=== PATIENT | male | born 1960 | race Caucasian/White ===

== ENCOUNTER → 2017-01-21 | Outpatient (CLI) | payer OTHER ==
[~2017-01-21] MED LIST: MTR600X PO; OXYC1TAB3 PO
--- NOTE | 2017-01-22 08:30 | PAP/PSG TECHNICIAN REPORT ---
[facility] Infertility Nurse Polysomnogram Report Study name: None Report date: 01/22/2017 Study date: 01/21/2017 Referring Physician: DR. ARI UP Name: SHERIDAN ARAUJO Interpreting Physician: Mirta Amato M.D. Date of : 1960 Infertility Nurse: Diane Newberry, PSGT. Sex: Male Age: 56 StudyType: PSG Weight: 231 lbs Height: 56 years, Height 5' 6" Neck Circum:17.5 inches BMI: 37.28 Medications: Melatonin 5 mg, Lisinopril 10 mg, Benadryl 25 mg, IBP 200 mg, Multivit. Patient History 56 yr. old male in room 5, presents to the sleep lab for insomnia. Pt. states that he sleeps on the floor at night due to previous back surgeries. He states that he wakes often for long periods, he is restless and isn't able to shut down his mind. Ess= 14, Neck =17.5 inches. Parameters Monitored NPSG: E1-M2, E2-M1, Fp1-M2, Fp2-M1, F3-M2, F4-M2, F4-M1, C3-M2, C4-M2, C4-M1, O1-M2, O2-M2, O2-M1, T3-M2, T4-M1, P3-M2, P4-M1, CHIN1, CHIN2, HR, EKG, Legs, PFLOW, SNOR, FLOW, CFLOW, Tidal Volume, THOR, ABDO, SpO2, PLTH, CPRESS, ETCO2 Wave, ETCO2, pH Sleep Architecture Sleep Stages Time at Lights Off 10:08:59 PM STAGES Time (min.) TST (%) Time at Lights On 5:40:59 AM Wake 44.0 -- Total Recording Time (TRT) 453.50 min. N1 41.0 10 Total Sleep Period (TSP) 446.0 min. N2 317.0 78 Total Sleep Time (TST) 408.0min. N3 0.0 0 Awake Time 45.5 min. REM 50.0 12 Wake after Sleep Onset 38.0 min. Sleep Efficiency (SE) 90 % Sleep Onset Latency (TERRY) 6.0 min. Number of Stage 1 Shifts None Awakenings 12 Stage Changes 49 Number of REM periods 4 REM 50.0 12 REM Latency 194.0 min. NREM 358.0 88 Body Position Analysis Supine Right Left Side Prone Vertical Total Sleep Time (min.) 133.5 166.6 126.9 293.49 0.0 1.2 Total Sleep Time (%) 28% 41% 31% 72 0% N/A% Total Sleep Time REM (min.) 0.0 32.0 18.0 None 0.0 0.0 Total Sleep Time NREM (min.) 114.5 134.6 108.9 None 0.0 0.0 Intermittent Wake (min.) 19.0 14.4 9.3 None 0.0 1.2 Total Sleep Period (%) 29% None None None None None Arousals Myoclonus (PLM) * Events Count Index Events Count Index Spontaneous 56 8 Events Awake (PLMW) 0 0.0 Respiratory 3 0.4 Events Asleep w/ Arousal (PLMA) 2 0.3 PLM 2 0 Events Asleep w/o Arousal (PLMS) 30 4.4 Snoring 14 2 Total Asleep 32 4.7 Total 74 11 Total 32 4 Respiratory Analysis * CA OA MA CH H RERA Total Count 0 0 0 0 33 5 33 Index 0.0 0.0 0.0 0 4.9 1 5.6 Mean Duration 0.0 0.0 0.0 0.00 22.3 16.6 21.5 Longest Duration 0.0 0.0 0.0 0.00 0.0 21.6 54.5 Respiratory Event Summary Total Supine ~Supine Right Left Prone REM NREM Apneas Count 0 0 0 0 0 N/A 0 0 Index 0.0 0 0 0.0 0.0 N/A 0 0 Hypopneas (4% Desat) Count 33 31 2 0 2 N/A 0 33 Index 4.9 16.2 0 0.0 0.9 N/A 0.0 5.5 Apneas & All Hypopneas Count 33 31 2 0 2 N/A 0 33 Index 4.9 16 0 0 1 N/A 0.0 5.5 Respiratory Events (Strip Cutter+All Hyp+RERA) Count 33 31 7 3 4 N/A 0 33 Index 5.6 16 1 1.1 1.9 N/A 1.2 6.2 Respiratory Related Arousal Count 3 31 0 0 0 N/A 0 3 Index 0.4 2 0 0 0 N/A 0 1 Snoring Analysis Supine Right Left Prone REM NREM Total Snore duration 44.6 min Snores count 639 212 605 N/A 78 1,378 1,456 Snore mean duration 1.8 Sec Snores index 335 76 286 N/A 93.6 230.9 214.1 TST with snoring (%) 10.9% Desaturation Event Summary: Minimum %SpO2 Event Count Mean/Min/Max Duration(sec.) Desaturation Index % Time In Bed > 90 28 30.5 / 12.0 / 58.8 11.6 32.2 86 - 90 14 26.3 / 10.8 / 54.5 2.8 67.6 81 - 85 0 N/A 0.0 0.1 76 - 80 0 N/A 0.0 0.0 71 - 75 0 N/A 0.0 0.0 66 - 70 0 N/A 0.0 0.0 61 - 65 0 N/A 0.0 0.0 56 - 60 0 N/A 0.0 0.0 51 - 55 0 N/A 0.0 0.0 < 50 0 N/A 0.0 0.0 Total REM NREM Awake <50% 0.0 min. 0.0 min. 0.0 min. 0.0 min. 51 - 60% 0.0 min. 0.0 min. 0.0 min. 0.0 min. 61 - 70% 0.0 min. 0.0 min. 0.0 min. 0.0 min. 71 - 80% 0.0 min. 0.0 min. 0.0 min. 0.0 min. 81 - 90% 305.0 min. 24.3 min. 257.7 min. 22.9 min. 91 - 100% 145.1 min. 25.6 min. 99.3 min. 20.1 min. Average 90 91 90 91 Minimum SpO2 84 88 84 87 Desaturation Event Index 4.1 0.0 5.2 0.0 # Desat. Events below 89% 22 N/A 22 N/A Time(%) with Saturation below 89% 13.8 0.0 12.4 1.4 Time(min.) with Saturation below 89% 62.0 0.1 55.8 6.1 Time (mins) REM (mins) NREM (mins) % of TST SpO2 Below 90% 31 N/A N31 39.5 SpO2 Below 88% 10 0 0 2 Heart Rate Analysis Min (bpm) Max (bpm) Average (bpm) Awake 54 127 63 NREM 49 89 60 REM 48 78 56 Overall 48 89 59 Supplemental O2 Values Minimum O2 level: None Value Start Time End Time Infertility Nurse Comments PSG Study Mr. Araujo slept in the right, left, and supine positions. No cardiac arrhythmia or PLM's noted. No bruxism noted. Snoring was noted and scored as a 4 on a scale of 1 through 5. (0=no snoring, 5=snoring loud enough to be heard through a closed door or down the song way) Mr. Araujo awoke to use the restroom zero times during the night. Mr. Araujo stated, I did not sleep as well as I do when I am in my own bed. The final report will be interpreted and signed by a sleep physician. The completed physician report will then be placed in the patient medical record. Pt. seemed to sleep well. he was restless turning often, most likely from back discomfort. Heavy snoring was heard at times. Therapy (cm H2O) 0 TIB (min.) 452.0 TST (min.) 408.0 Sleep Onset (min.) 6.0 REM Onset From Sleep (min.) 194.0 Sleep Efficiency % 90 Wakefulness (%) 10 Wakefulness (min.) 45.5 NREM 1 (%) 10 NREM 1 (min.) 41.0 NREM 2 (%) 78 NREM 2 (min.) 317.0 NREM 3 (%) 0 NREM 3 (min.) 0.0 REM (%) 12 REM (min.) 50.0 # Arousals 74 Arousal Index 11 # Snore 1,456 Snore Index 214.1 AHI 4.9 AHI Supine 16 AHI Non-Supine 0 NREM AHI 5.5 REM AHI 0.0 RDI 5.6 # Obstructive Apnea 0 # Central Apnea 0 # Mixed Apnea 0 # Hypopneas 33 RERAs 5 Total Respiratory Events 38 Time Below SpO2 89% (min.) 55.9 Mean NREM SpO2 (%) 90 Mean REM SpO2 (%) 91 Mean Sleep SpO2 (%) 90 Min NREM SpO2 (%) 84 Min REM SpO2 (%) 88 Position Supine (min.) 133.5 Position Non-supine (min.) 293.5 LM Index Sleep 4.7 LM Index NREM 3.9 LM Index REM 10.8 Mean Heart Rate (bpm) 59 Min Heart Rate (bpm) 48
--- NOTE | 2017-02-05 08:14 | POLYSOMNOGRAPH REPORT ---
REFERRING PERSON: Dr. Kaykay Amato. COURT ATTENDANT: Ana Newberry. Mr. Araujo is a 56-year-old male who presents to the sleep lab with insomnia. He sleeps on his floor at night due to previous back surgeries. He wakes for long periods of time during the night and is often restless in his sleep. He admits to ruminating thoughts that make it difficult for his mind shut down. His [place] sleepiness scale score on the evening of this study is 14. BMI 37.28. Following the technical and digital specifications of the [employer] (AASM) a standard diagnostic polysomnogram was performed monitoring EEG, EOG, EMG (chin and leg deviations), oxygen saturation, body position, digital video, respiratory effort and airflow. The sleep Stage and event scoring was based on the AASM Manual for the Scoring of Sleep and Associated Events 2007 edition. Apneas are defined as a drop in the peak thermal sensor excursion by >90% of baseline for at least 10 seconds. Hypopneas were scored using the 4% oxygen desaturation rule (4A-[employer]) and a decrease in the nasal pressure excursions by >30% of baseline for at least 10 seconds. Respiratory effort-related arousal (RERA's) is defined as a sequence of breaths lasting at least 10 seconds characterized by increasing respiratory effort or flattening of the nasal pressure waveform leading to an arousal from sleep when the sequence of breaths does not meet criteria for an apnea or hypopnea. Apnea Hypopnea index (AHI) is defined as the number of apneas and hypopneas occurring in an hour of sleep. Respiratory disturbance index (RDI) is defined as the number of apneas, hypopneas, and RERA's occurring in an hour of sleep. Mr. Araujo's total sleep period time was 446 minutes. Total sleep time was 408 minutes. Sleep efficiency was 90%. Latency to sleep onset was 6 minutes with wake after sleep onset of 36 minutes. Total non-REM sleep time was 358 minutes. He spent 10% of that time in N1 sleep, 78% in N2 sleep, and no time in N3 sleep. REM latency was 194 minutes. Total REM sleep time was 50 minutes or 12% of total sleep time. There were 74 cortical arousals from sleep. 56 of these arousals were spontaneous, 3 were due to respiratory events, 2 due to periodic limb movements of sleep and 14 were due to snoring. There were 32 periodic limb movements of sleep noted on this test. Limb movement index was 4.7. Limb movement with arousal index was 0.3. There were no central obstructive or mixed apneas noted. There were 33 hypopnea and 5 RERA. Apnea-hypopnea index was borderline abnormal at 4.9. RDI was 5.6. This is consistent with upper airway resistance syndrome. There were 1456 snoring events recorded. Total sleep time with snoring was 10.9%. Mean saturation during sleep was borderline low at 90%. There were desaturations to 84% with respiratory events. Saturations were less than 89 for 62 minutes of recorded time. This is significant nocturnal hypoxemia. There was no cardiac ectopy recorded on this test. Heart rates ranged from a low of 48 beats per minute to a high of 89 beats per minute. IMPRESSION AND PLAN: 56-year-old male without evidence of sleep apnea but testing consistent with upper airway resistance syndrome as well as nocturnal hypoxemia. 1. This patient would likely benefit from oxygen therapy at bedtime. Overnight oximetry on oxygen should ensure hypoxemia resolves. 2. Readdressing of his ruminating thoughts may also help his overall sleep time and quality. Clinical correlation is needed. WAYNE
== END | disposition home or self-care (01) ==
LOC: C.NEUR 21:00
PROVIDERS: ATTEND Family Medicine
DX: F51.04 Psychophysiologic insomnia (principal); R06.83 Snoring; F51.11 Primary hypersomnia; E66.01 Morbid (severe) obesity due to excess calories; I10 Essential (primary) hypertension